=== PATIENT | female | born 1950 | race American Indian/Alaskan Native ===

== ENCOUNTER 2019-01-09 23:21 | Emergency (ER) | payer BC ==
[2019-01-09] MEDS ORDERED: ONDANSETRON 4 MG/2 ML INJ IV ONE (23:56)
[2019-01-09] MEDS ORDERED: MORPHINE 4 MG/1 ML INJ IV ONE (23:56)
[2019-01-09] MEDS ORDERED: SODIUM CHLORIDE 0.9% 1000 ML 1,000 ML IV ONE (23:56)
--- NOTE | 2019-01-10 | Emergency Department Report ---
ED General Adult HPI - General Chief complaint: Pain General Stated complaint: BODY PAIN Time Seen by Provider: 01/09/19 23:39 Source: patient, EMS Mode of arrival: Stretcher Limitations: Physical Limitation - History of Present Illness Initial comments: Patient is 68 years old female with history of CVA, left side weakness residual, hypertension and diabetes. Patient brought to the emergency room via EMS for complaint of generalized body pain for the last 2 months. Patient stated that pain started getting worse for the last 3-4 days. Patient denied any recent injury. She also denied any fever or chills. No nausea or vomiting. Severity scale (0 -10): 10 - Related Data Previous Rx's Medication Instructions Recorded Last Taken Type Pantoprazole [Protonix] 40 mg PO BID #60 tablet 04/11/14 Unknown Rx Simvastatin (Nf) [Zocor TAB] 20 mg PO QHS #30 tablet 04/11/14 Unknown Rx amLODIPine [Norvasc] 5 mg PO QDAY #30 tablet 04/11/14 Unknown Rx hydrALAZINE [Apresoline TAB] 25 mg PO Q8HR #90 tablet 04/11/14 Unknown Rx Ondansetron [Zofran Odt] 4 mg PO Q8HR PRN #14 tab.rapdis 01/10/19 Unknown Rx traMADol [Ultram 50 MG tab] 50 mg PO Q4HR PRN #14 tablet 01/10/19 Unknown Rx Allergies Allergy/AdvReac Type Severity Reaction Status Date / Time No Known Allergies Allergy Unverified 04/08/14 17:28 ED Review of Systems ROS: Stated complaint: BODY PAIN Other details as noted in HPI Comment: All other systems reviewed and negative Constitutional: denies: chills, fever Respiratory: denies: cough, shortness of breath, SOB with exertion Cardiovascular: denies: chest pain, palpitations Gastrointestinal: denies: abdominal pain, nausea, vomiting, diarrhea, constipat ion, hematemesis, hematochezia Musculoskeletal: back pain Neurological: denies: headache, weakness ED Past Medical Hx - Past Medical History Previous Medical History?: Yes Hx Hypertension: Yes Hx CVA: Yes (L sided weakness) Hx Congestive Heart Failure: No Hx Diabetes: Yes - Surgical History Past Surgical History?: Yes Additional Surgical History: intestinal polyp removal - Social History Smoking Status: Never Smoker - Medications Home Medications: Home Medications Medication Instructions Recorded Confirmed Last Taken Type Pantoprazole [Protonix] 40 mg PO BID #60 tablet 04/11/14 05/09/14 Unknown Rx Simvastatin (Nf) [Zocor TAB] 20 mg PO QHS #30 tablet 04/11/14 05/09/14 Unknown Rx amLODIPine [Norvasc] 5 mg PO QDAY #30 tablet 04/11/14 05/09/14 Unknown Rx hydrALAZINE [Apresoline TAB] 25 mg PO Q8HR #90 tablet 04/11/14 05/09/14 Unknown Rx Ondansetron [Zofran Odt] 4 mg PO Q8HR PRN #14 tab.rapdis 01/10/19 Unknown Rx traMADol [Ultram 50 MG tab] 50 mg PO Q4HR PRN #14 tablet 01/10/19 Unknown Rx ED Physical Exam - General Limitations: Physical Limitation General appearance: alert, in no apparent distress - Head Head exam: Present: atraumatic, normocephalic, normal inspection - Eye Eye exam: Present: normal appearance - ENT ENT exam: Present: normal exam, normal orophraynx, mucous membranes moist - Neck Neck exam: Present: normal inspection, full ROM. Absent: tenderness, meningismus, lymphadenopathy, thyromegaly - Respiratory Respiratory exam: Present: normal lung sounds bilaterally, chest wall tenderness - Cardiovascular Cardiovascular Exam: Present: regular rate, normal rhythm, normal heart sounds - GI/Abdominal GI/Abdominal exam: Present: soft, normal bowel sounds. Absent: distended, tenderness, guarding, rebound, rigid, organomegaly, mass, bruit, pulsatile mass, hernia - Extremities Exam Extremities exam: Present: normal inspection, full ROM - Back Exam Back exam: Present: normal inspection, full ROM. Absent: CVA tenderness (R), CVA tenderness (L), paraspinal tenderness - Neurological Exam Neurological exam: Present: alert, oriented X3, abnormal gait - Psychiatric Psychiatric exam: Present: normal mood - Skin Skin exam: Present: warm, intact, normal color ED Course Vital Signs 01/09/19 01/09/19 01/09/19 23:33 23:40 23:45 Temperature 98 F Pulse Rate 73 Respiratory 15 Rate Blood Pressure 189/93 179/91 O2 Sat by Pulse 99 Oximetry 01/10/19 01/10/19 01/10/19 00:01 00:27 00:31 Temperature Pulse Rate 91 H 83 83 Respiratory 17 40 H 38 H Rate Blood Pressure 189/93 189/93 189/93 O2 Sat by Pulse Oximetry 01/10/19 01/10/19 01/10/19 00:45 01:00 01:15 Temperature Pulse Rate 80 82 76 Respiratory 33 H 14 18 Rate Blood Pressure 189/93 191/101 191/101 O2 Sat by Pulse Oximetry 01/10/19 01/10/19 01/10/19 01:31 02:00 02:30 Temperature Pulse Rate 74 68 67 Respiratory 18 17 17 Rate Blood Pressure 150/75 149/81 150/81 O2 Sat by Pulse Oximetry 01/10/19 03:00 Temperature Pulse Rate 70 Respiratory 16 Rate Blood Pressure 134/80 O2 Sat by Pulse Oximetry ED Medical Decision Making - Lab Data Result diagrams: 01/10/19 00:42 01/10/19 00:42 - Radiology Data Radiology results: report reviewed - Medical Decision Making Patient is 68 years old female with history of CVA, left side weakness residual, hypertension and diabetes. Patient brought to the emergency room via EMS for complaint of generalized body pain for the last 2 months. Patient stated that pain started getting worse for the last 3-4 days. Patient denied any recent injury. She also denied any fever or chills. No nausea or vomiting. Patient received morphine and stated that her symptom is much better. Patient's pain is a non-localized. Labs reviewed and is unremarkable except for hypocalcemia. X-ray of the chest, shoulder and right knee is negative for acute finding. Patient given a prescription for tramadol and advised to follow-up with her primary care physician in the next 2-3 days and to attend to the ER if symptoms are not improved. Critical care attestation.: If time is entered above; I have spent that time in minutes in the direct care of this critically ill patient, excluding procedure time. ED Disposition Clinical Impression: Total body pain, Otitis media Disposition: - TO HOME OR SELFCARE Is pt being admited?: No Condition: Stable Instructions: Musculoskeletal Pain (ED), Otitis Media (ED) Prescriptions: traMADol [Ultram 50 MG tab] 50 mg PO Q4HR PRN #14 tablet PRN Reason: Pain Ondansetron [Zofran Odt] 4 mg PO Q8HR PRN #14 tab.rapdis PRN Reason: Nausea And Vomiting Referrals: PRIMARY CARE, [Primary Care Provider] - 3-5 Days
--- NOTE | 2019-01-10 00:45 | XRay Report ---
BILATERAL SHOULDERS 6 VIEWS INDICATION / CLINICAL INFORMATION: Bilateral shoulder pain. COMPARISON: None available. FINDINGS: BONES and JOINT(S): No acute fracture or subluxation. No significant arthritis. SOFT TISSUES: No significant abnormality. ADDITIONAL FINDINGS: None. IMPRESSION: No acute abnormality of the shoulders. Signer Name: Prem Castillo MD Signed: 01/10/2019 12:41 AM Workstation Name: [id number]
--- NOTE | 2019-01-10 00:46 | XRay Report ---
PELVIS ONE VIEW INDICATION / CLINICAL INFORMATION: Pelvic pain. COMPARISON: None available. FINDINGS: BONES and JOINT(S): No acute fracture or subluxation. No significant arthritis. SOFT TISSUES: No acute abnormality. There is moderate generalized atherosclerosis. ADDITIONAL FINDINGS: None. IMPRESSION: No acute abnormality of the pelvis. Signer Name: Prem Castillo MD Signed: 01/10/2019 12:42 AM Workstation Name: [id number]
--- NOTE | 2019-01-10 00:48 | XRay Report ---
RIGHT KNEE 3 VIEWS INDICATION / CLINICAL INFORMATION: Right knee pain. COMPARISON: None available. FINDINGS: BONES and JOINT(S): No acute fracture or subluxation. No significant arthritis. SOFT TISSUES: No significant abnormality. ADDITIONAL FINDINGS: None. IMPRESSION: No acute abnormality of the right knee. Signer Name: rPem Castillo MD Signed: 01/10/2019 12:44 AM Workstation Name: [id number]
--- NOTE | 2019-01-10 00:51 | XRay Report ---
CHEST 1 VIEW 01/10/2019 12:10 AM INDICATION / CLINICAL INFORMATION: chest pain. COMPARISON: None available. FINDINGS: SUPPORT DEVICES: None. HEART / MEDIASTINUM: No significant abnormality. LUNGS / PLEURA: Lung volumes are reduced with bibasilar atelectasis. No significant pleural effusion. No pneumothorax. ADDITIONAL FINDINGS: No significant additional findings. IMPRESSION: 1. No acute abnormality of the chest. 2. Bibasilar atelectasis. Signer Name: Prem Castillo MD Signed: 01/10/2019 12:47 AM Workstation Name: [id number]
[2019-01-10 01:03] LABS: Hematocrit 44.1 % (30.3-42.9); Hemoglobin 14.6 gm/dl (10.1-14.3); Mean Corpuscular HGB Conc 33 % (30-34); Mean Corpuscular Volume 84 fl (79-97); Platelet Count 219 K/mm3 (140-440); Red Blood Count 5.27 M/mm3 (3.65-5.03); Red Cell Distribution Width 16.3 % (13.2-15.2)
[2019-01-10 01:16] LABS: Bilirubin,Urine NEG (Negative); Blood,Urine NEG (Negative); Color,Urine Colorless (Yellow); Protein,Urine <15 mg/dL mg/dL (Negative); RBC,Urine < 1.0 /HPF (0.0-6.0); Urobilinogen,Urine < 2.0 mg/dL (<2.0); WBC,Urine < 1.0 /HPF (0.0-6.0)
[2019-01-10 01:18] LABS: Albumin 3.7 g/dL (3.9-5); BUN/Creatinine Ratio 12; Blood Urea Nitrogen 7 mg/dL (7-17); Calcium 7.3 mg/dL (8.4-10.2); Hemolysis Index 171
[2019-01-10 01:50] LABS: Alanine Aminotransferase 11 units/L (7-56)
[2019-01-10 03:13] VITALS: BP 134/80
[2019-01-10 03:19] LABS: Eosinophils % (Manual) 0 % (0.0-4.3); Total Cells Counted 100
[2019-01-10 03:20] LABS: Large Platelets 1+; Platelet Estimate Consistent w Auto; RBC Morphology Normal
== END 2019-01-10 04:31 | disposition home or self-care (01) ==
LOC: ED 23:21
DX: M25.561 Pain in right knee (principal); M25.511 Pain in right shoulder; M25.512 Pain in left shoulder; H66.93 Otitis media, unspecified, bilateral; I10 Essential (primary) hypertension; E11.9 Type 2 diabetes mellitus without complications; M79.10 Myalgia, unspecified site; Z79.899 Other long term (current) drug therapy
CPT/HCPCS: 36415; 71045; 72170; 73030; 73562; 80053; 81001; 85007; 85025; 96374; 96375; 99284; J2270; J2405; J7030; 96361